=== PATIENT | male | born 1950 | race Caucasian/White ===

== ENCOUNTER 2022-06-10 08:44 | Outpatient (CLI) | payer OTHER ==
[~2022-06-10 08:44] MED LIST: ABILIFY5 MG; ATIVAN1 MG; CATAFLAM50 MG; KLONOPIN1 MG/TAB; LEVAQUIN750 MG PO; MICARDIS80 MG; TOPROL XL25 MG; TUSSI-PRES LIQ118 ML PO; WELLBUTRIN XL150 MG
== END 2022-06-10 08:55 | disposition home or self-care (01) ==
LOC: RAD 08:44
PROVIDERS: ATTEND Orthopaedic Surgery
DX: M79.671 Pain in right foot (principal)

== ENCOUNTER 2022-09-07 08:48 | Outpatient (CLI) | payer OTHER | END 2022-09-07 08:49 | disposition home or self-care (01) | LOC: LAB 08:48 | PROVIDERS: ATTEND Orthopaedic Surgery | DX: D64.9 Anemia, unspecified (principal); E88.9 Metabolic disorder, unspecified; D68.8 Other specified coagulation defects; N39.0 Urinary tract infection, site not specified; Z22.322 Carrier or suspected carrier of Methicillin resistant Staphylococcus aureus ==

== ENCOUNTER → 2022-11-05 | Outpatient (CLI) | payer OTHER | END | disposition home or self-care (01) | LOC: RAD 14:58 | PROVIDERS: ATTEND Orthopaedic Surgery | DX: M20.11 Hallux valgus (acquired), right foot (principal); M20.5X1 Other deformities of toe(s) (acquired), right foot ==

== ENCOUNTER 2024-06-14 07:35 | Outpatient (CLI) | payer OTHER | END 2024-06-14 07:36 | disposition home or self-care (01) | LOC: NUCLEAR 07:35 | DX: C49.3 Malignant neoplasm of connective and soft tissue of thorax (principal); C79.9 Secondary malignant neoplasm of unspecified site; C78.00 Secondary malignant neoplasm of unspecified lung | CPT/HCPCS: 78815; A9552 ==